=== PATIENT | male | born 1990 | race Caucasian/White ===

== ENCOUNTER 2017-05-04 11:15 | Emergency (ER) | payer OTHER ==
[~2017-05-04] VITALS: Ht 175.3 cm; Wt 75.7 kg
[~2017-05-04 11:15] MED LIST: CLIN300C2 PO
[2017-05-04 11:17] VITALS: Ht 175.3 cm; Wt 75.7 kg
[2017-05-04] MEDS ORDERED: LIDOCAINE HCL 1% 20 ML VIAL ONE (12:05)
--- NOTE | 2017-05-04 12:05 | EMERGENCY ROOM VISIT NOTE ---
ED Visit Note First contact with patient: 11:36 CHIEF COMPLAINT: Infection of the left axilla HISTORY OF PRESENT ILLNESS: This or year-old male patient presents to the emergency department 4 days after they noticed a red, tender area in the left axilla. It is slowly getting larger, more painful and tender. Patient was seen last night in the emergency department and diagnosed with localized cellulitis. Provider did not note any abscess at that time. Patient states he awoke this morning with increased redness, increased pain, and swelling in the area, as well as a hard lump in the axilla. No fever, chills, or loss of appetite, however he is experiencing increased fatigue since this began. There has been minimal drainage from the area. There was no injury to the area preceding the infection. They rate the pain as achy and 8/10. Tetanus shot is up to date. Patient works in [employer]. They have tried 2 doses of clindamycin since last night, and a warm shower this morning which did seem to help with the discomfort. The patient is not diabetic. The patient has no history of subcutaneous abscesses. REVIEW OF SYSTEMS: A review of systems was performed with positives and pertinent negatives listed in the history of present illness. All other systems were reviewed and are negative. ALLERGIES: Cefaclor MEDICATIONS: Clindamycin PMH: None SOCIAL HISTORY: Patient lives locally with his family. He denies alcohol, tobacco, drug use. Patient works in [employer]. PHYSICAL EXAM: Vital Signs: Reviewed Nurse's notes, vital signs stable. GENERAL : 26-year-old male, no acute distress, non toxic in appearance, well-developed well-nourished. SKIN: There is an erythematous indurated area in the left axilla which measures about 1.5 cm in diameter. It is fluctuant but there is no pointing or drainage. There is a zone of inflammation around it but no lymphangitis. Capillary refill less than 2 seconds. MUSCULOSKELETAL: There is mild limitation of the range of motion of the left shoulder due to pain. EMERGENCY DEPARTMENT COURSE: I examined the patient. Verbal consent was obtained to perform the procedure. After saline and Betadine cleansing and 5 mL of 1% buffered lidocaine anesthesia, the abscess was incised with a number 11 scalpel blade. A small amount of purulent material was released with more expressed by pressure and a moderate amount of bleeding. A swab was obtained for culture. The abscess cavity was further probed with a needle show horse driver and the deep pocket expressed. The abscess cavity was then copiously irrigated with sterile saline under pressure. The area was then packed with bacitracin soaked packing. The area was cleaned with sterile saline and dressed with a bulky bandage. The patient tolerated the procedure well. Prior to discharge, patient states he could feel the packing located in his left axilla, and requested pain medication. The patient was given a dose of Percocet in the emergency department. He tolerated this medication well with no adverse reactions. The patient was discharged home in stable condition. DIAGNOSIS: Abscess of the left axilla DIFFERENTIAL DIAGNOSIS: Cellulitis, abscess, lymphangitis, and others. DISCHARGE INSTRUCTIONS & TREATMENT: Change the dressing if it becomes soiled or blood-stained and return tomorrow for reevaluation, and repacking of the wound. Continue taking clindamycin as prescribed, and add Bactrim twice daily x10 days as directed. Return if any problems such as fever or increasing pain. For pain control, you can use the following [id number] medicines (if >12 yo): - Extra Strength Tylenol (acetaminophen) 1-2 tabs every 6 hours as needed. Avoid taking more than 4 grams (4000 mg) of Tylenol per day. This includes any other sources of acetaminophen you may take on a regular basis. - Regular strength (200 mg/tab) Advil (ibuprofen) 2-3 tabs every 6 hours as needed. Do not exceed a dose of 3200 mg per day. - You may alternate these medications. You were given a dose of Percocet in the emergency department. You may not drive, or operate machinery today. You should not drink alcohol while on this medication. See a general surgeon if an abscess re-occurs in the same area in the future for consideration of excision of the cyst. Problem List Medical Problems: (1) Facial injury Status: Resolved Current/Historical Medications Scheduled Clindamycin Hcl (Cleocin), 300 MG PO QID Sulfa/Trimethoprim (Bactrim Ds 800MG/160MG), 1 TAB PO BID Allergies Coded Allergies: Cefaclor (Unverified Allergy, Unknown, unknown, 05/04/17) Vital Signs Date Time Temp Pulse Resp B/P (MAP) Pulse Ox O2 Delivery O2 Flow Rate FiO2 6/8/17 13:26 36.8 79 18 134/69 98 05/04/17 11:17 36.8 86 18 115/76 98 Room Air Medications Administered Medications (Trade) Dose Ordered Sig/Kyler Route Start Time Stop Time Status Last Admin Dose Admin Oxycodone/ Acetaminophen (Percocet 5-325mg Tab) 1 tab NOW STAT PO 05/04/17 13:16 05/04/17 13:17 DC 05/04/17 13:16 1 TAB Departure Information Impression Primary Impression: Abscess of axilla, left Dispostion Home / Self-Care Condition GOOD Prescriptions Sulfa/Trimethoprim (Bactrim Ds 800MG/160MG) Tab 1 TAB PO BID for abscess for 10 Days, #20 TAB Prov: Brittany Hooks, BIANKA 05/04/17 Referrals Abby Burris DO (PCP) Patient Instructions My [facility] Additional Instructions You were given a dose of Percocet in the emergency department. You may not drive, or operate machinery today. You should not drink alcohol while taking this medication. Trimethoprim-Sulfamethoxazole(Bactrim DS): Take one pill twice daily for 10 days for your abscess. All antibiotics can cause diarrhea. If this occurs and you feel worse or it does not resolve in 1-2 days follow up with your doctor or return to the Emergency Department as this could be signs of serious underlying problems. Any medication can cause an allergic reaction, stop the pills immediately and return to the ER for rash, hives, breathing difficulties, or swelling. Continue taking clindamycin as prescribed last night. Keep the dressing in place, unless it becomes soiled or saturated, until he can follow up tomorrow. Do not remove the packing. You may shower regularly, however try to keep the dressing we put in place dry. Follow-up with your primary care doctor tomorrow or in the emergency department tomorrow for removal and change of packing. Strongly advised against 4-wheeling or doing activities this weekend which could cause bacteria to enter the open wound. If you choose to participate in these activities, you should be sure to use a waterproof dressing over the open wound and change it regularly. Follow-up in the emergency department sooner, if you experience increased redness, drainage, pain, fever, chills, body aches, nausea, vomiting. For pain control, you can use the following [id number] medicines (if >12 yo): - Extra strength (500mg/tab) Tylenol (acetaminophen) 2 tabs every 6 hours as needed. Avoid taking more than 4 grams (4000 mg) of Tylenol per day. This includes any other sources of acetaminophen you may take on a regular basis. - Regular strength (200 mg/tab) Advil (ibuprofen) 3 tabs every 6 hours as needed. Do not exceed a dose of 3200 mg per day. - I recommend alternating these 2 medications every 3-4 hours for acute pain relief. Work Instructions Return To Work: 2 days Specific Date: 05/08/17
[2017-05-04] MEDS ORDERED: SULF800T23 PO (12:13)
[2017-05-04] MEDS ORDERED: OXYCODONE/ACETAMINOPHEN 5-325 TAB PO STA (13:16)
[2017-05-04 13:26] VITALS: BP 134/69; PULSE 79; TEMP 36.8; O2SAT 98
== END 2017-05-04 13:27 | disposition home or self-care (01) ==
LOC: C.EDB 11:17 → C.EDC 13:27
DX: L02.412 Cutaneous abscess of left axilla (principal); Z88.8 Allergy status to other drugs, medicaments and biological substances; Z87.828 Personal history of other (healed) physical injury and trauma

== ENCOUNTER 2017-05-05 17:55 | Emergency (ER) | payer OTHER ==
[~2017-05-05] VITALS: Ht 175.3 cm; Wt 74.1 kg
[~2017-05-05 17:55] MED LIST changes: +SULF800T23 PO
[2017-05-05 17:57] VITALS: BP 127/75; PULSE 70; TEMP 36.7; O2SAT 98; Ht 175.3 cm; Wt 74.1 kg
--- NOTE | 2017-05-05 18:30 | EMERGENCY ROOM VISIT NOTE ---
ED Visit Note First contact with patient: 18:08 CHIEF COMPLAINT: Packing removal HISTORY OF PRESENT ILLNESS: This 26-year-old male patient presents to the emergency department 1 day after I&D of left axillary abscess for packing removal. Previous care outlined has been followed without difficulty. Patient states his did have to change the outer dressing last evening due to saturation with pus. Patient states redness, swelling, pain has improved since drainage and addition of antibiotics yesterday. He continues to feel much better today. REVIEW OF SYSTEMS: A 6 system review of systems was completed with positives and pertinent negatives listed in the HPI. ALLERGIES: Cefaclor MEDICATIONS: Clindamycin, Bactrim PMH: None PHYSICAL EXAM: Vital Signs reviewed, see Nurse's notes. Patient is afebrile, vital signs stable. GENERAL: 26-year-old male, awake, alert, well appearing, no acute distress SKIN: Packing is still in place in left axilla. There is some continued purulent discharge. The redness has significantly decreased. The wound is healing well. NEURO: No sensory or motor deficits noted. EMERGENCY DEPARTMENT COURSE AND DECISION MAKING: I examined the patient. The packing was removed from the left axilla. The wound is healing well. Small amount of packing replaced in the wound due to ongoing drainage. Discharge instructions reviewed. Discharged in stable condition. DIAGNOSIS: Packing removal DIFFERENTIAL DIAGNOSIS: Abscess, cellulitis TREATMENT PLAN: Continue treatment as previously outlined. Make sure he finishes all prescribed antibiotics. Warm compresses to continue to expel pus. You or your (a nurse) may remove the packing on Monday evening or return to the emergency department for packing removal. Keep the wound covered until it closes to prevent exposure to bacteria and worsening infection. Do not get the bandage wet. Return to the emergency department for fever, chills, body aches, nausea, increasing redness, copious purulent drainage, increased swelling or pain. You should follow up with a primary care doctor within the next week. Followup with surgeon for persistent abscess or return of the abscess. Problem List Medical Problems: (1) Facial injury Status: Resolved Current/Historical Medications Scheduled Clindamycin Hcl (Cleocin), 300 MG PO QID Sulfa/Trimethoprim (Bactrim Ds 800MG/160MG), 1 TAB PO BID Allergies Coded Allergies: Cefaclor (Unverified Allergy, Unknown, unknown, 05/04/17) Vital Signs Date Time Temp Pulse Resp B/P (MAP) Pulse Ox O2 Delivery O2 Flow Rate FiO2 05/05/17 17:57 36.7 70 17 127/75 98 Room Air Departure Information Impression Primary Impression: Abscess of axilla, left Additional Impression: Abscess packing removal Dispostion Home / Self-Care Condition GOOD Referrals Abby Burris, (PCP) Luis Reilly M.D. Patient Instructions My [facility] Additional Instructions Continue treatment as previously outlined. Make sure he finishes all prescribed antibiotics. Warm compresses to continue to expel pus. You or your (a nurse) may remove the packing on Monday evening or return to the emergency department for packing removal. Keep the wound covered until it closes to prevent exposure to bacteria and worsening infection. Do not get the bandage wet. Return to the emergency department for fever, chills, body aches, nausea, increasing redness, copious purulent drainage, increased swelling or pain. You should follow up with a primary care doctor within the next week. Followup with surgeon for persistent abscess or return of the abscess. Work Instructions Return To Work: 1 day Specific Date: 05/09/17 Additional Work Instructions: You should not work on Monday (05/08/17), but may return to work Monday, ensuring the wound can stay clean and dry. Regularly change dressings at work. Problem Qualifiers
== END 2017-05-05 18:35 | disposition home or self-care (01) ==
LOC: C.EDB 17:56 → C.EDD 18:35
DX: Z48.01 Encounter for change or removal of surgical wound dressing (principal); Z87.828 Personal history of other (healed) physical injury and trauma